=== PATIENT | female | born 1990 | race Hispanic/Latino ===

== ENCOUNTER 2017-07-07 07:25 | Inpatient (IN) | payer BC ==
--- NOTE | 2017-07-06 21:31 | PDOC.LDHP ---
Labor and Delivery H&P Chief complaint: scheduled induction HPI: 26 yo @ 38w5d by LMP c/w 20 week sono who presents for IOL due to A2DM managed on Metformin 1000 mg qhs and 500 mg qam. Patient also taking ASA 81 mg to due to h/p pre-eclampsia with prior @ 36 weeks. Antepartum course otherwise benign. Current gestational age (weeks): 38 Due date: 07/16/17 Dating criteria: last menstrual period Grav: 2 Para: 1 OB History Details: @ 36 weeks due to IOL for pre-eclampsia Current complications: gestational diabetes Abnormal US findings: No Past Medical History: Obesity Current medications: pre- vitamins, other (ASA, Metformin ) Previous surgical history: none Allergies/Adverse Reactions: Allergies Allergy/AdvReac Type Severity Reaction Status Date / Time No Known Allergies Allergy Verified 07/07/17 08:13 Social history: none - Physical Exam Vital signs reviewed and normal: yes General: NAD Heart: RRR Lungs: nonlabored breathing Abdomen: gravid Extremeties: no edema FHT: category 1 (140s, mod shania, +accels, no decels ) Napoleon contractions every: irregular - Vaginal Exam cm dilated: 4 (AROM clear ) Effacement: 50% Station: -2 - OB Labs Blood type: A RH: positive HIV: negative RPR: negative HEPSAg: negative 1 hour GCT: positive 3 hour GTT: positive GBS: negative Urine drug screen: not done Additional Labs: Rubella non-immune - Assessment 38w5d IUP A2DM H/O of pre-eclampsia Rubella non-immune - Plan Plan: admit to L&D, informed consent obtained, anesthesia consult for pain management -: Start pitocin for induction MMR post
[2017-07-07] MEDS: Lactated Ringer's 1,000 ML IV SCH ×2 (07:55→10:00)
[2017-07-07] MEDS ORDERED: LR / Pitocin 40 units/1000 ml 1,000 ML IV PRN (08:02)
[2017-07-07] MEDS ORDERED: Misoprostol 200 MCG TAB PR PRN (08:02)
[2017-07-07] MEDS ORDERED: Carboprost 250 MCG/ML AMP IM PRN (08:02)
[2017-07-07] MEDS ORDERED: HYDROcodone/Acetaminophen 5/325 mg Tablet PO PRN (08:02)
[2017-07-07] MEDS ORDERED: Ondansetron HCl/PF 4 MG/2 ML Vial IVP PRN ×3 (08:02→16:24)
[2017-07-07] MEDS ORDERED: Acetaminophen 500 MG TAB PO PRN (08:02)
[2017-07-07] MEDS ORDERED: Diphenoxylate HCl/Atropine Tablet PO PRN (08:02)
[2017-07-07] MEDS ORDERED: Lidocaine 1% (PF) 30 ML VIAL SC PRN (08:02)
[2017-07-07] MEDS ORDERED: Promethazine HCl 25 MG/ML VIAL IM PRN ×3 (08:02→16:24)
[2017-07-07] MEDS ORDERED: Ibuprofen 800 MG TAB PO PRN (08:02)
[2017-07-07] MEDS ORDERED: LR 500 ML/Oxytocin 10 units 500 ML IV SCH (08:02)
[2017-07-07 08:33] LABS: Hematocrit 33.8 % (36.0-47.0); Red Blood Cell (RBC) Count 3.72 mill/uL (4.20-5.40); White Blood Cell (WBC) Count 8.2 thou/uL (4.8-10.8)
[2017-07-07 08:41] VITALS: BMI 39.9
[2017-07-07] MEDS ORDERED: Fentanyl 4 mcg/Marc 0.1% Cadd 100 ML ONE (09:01)
[2017-07-07] MEDS ORDERED: Bupivacaine 0.75% W/DEXTROSE 8.25% 2 ML AMP ONE (09:15)
[2017-07-07] MEDS ORDERED: Fentanyl 100 MCG/2 ML VIAL ONE (09:22)
[2017-07-07] MEDS ORDERED: Fentanyl 100 MCG/2 ML VIAL I-THECAL ONE (09:50)
[2017-07-07] MEDS ORDERED: Bupivacaine 0.75% W/DEXTROSE 8.25% 2 ML AMP NERVE BLCK ONE (09:50)
[2017-07-07] MEDS ORDERED: Lactated Ringer's 500 ML IV PRN (09:51)
[2017-07-07] MEDS ORDERED: Acetaminophen 325 MG TAB PO PRN (09:51)
[2017-07-07] MEDS ORDERED: Naloxone HCl 0.4 mg/ml Vial IVP PRN ×2 (09:51)
[2017-07-07] MEDS ORDERED: ePHEDrine/0.9% NaCl/PF SYRINGE 50 mg/10 ml SLOW IVP PRN (09:51)
[2017-07-07] MEDS ORDERED: diphenhydrAMINE HCl 50 MG/ML 1 ML VIAL IVP PRN (09:51)
[2017-07-07] MEDS ORDERED: Eucerin (Mineral Oil/Petrolatum,White) 30 gm Jar TOP PRN (09:51)
[2017-07-07] MEDS ORDERED: Fentanyl 4mcg/Marcaine 0.1% Cassette 100 ML EPIDURAL SCH (10:00)
[2017-07-07] MEDS ORDERED: Communication Order-Pharmacy FS SCH (10:00)
--- NOTE | 2017-07-07 13:17 | PDOC.OPDEL ---
OB Operative/Delivery Note Delivery Dr/Surgeon: Betsy Whitlock DO Pre-Delivery Diagnosis: medically indicated induction (A2DM) Weeks gestation: 38 Anesthesia: epidural - Findings A Sex: female Weight: 7 lb 14 oz - 5 min: 9 (apgars 9/9) - Additional Findings/Plan Placenta delivered: spontaneous Repaired Obstetrical Laceration: 1st degree Estimated blood loss: 300 cc Compilations/Other Findings: delivered in PORTIA position without complications. Post delivery plan: routine recovery
[2017-07-07] MEDS ORDERED: traMADol HCl 50 MG TAB PO PRN (16:24)
[2017-07-07] MEDS ORDERED: Milk Of Magnesia 30 ML UDCUP PO PRN (16:24)
[2017-07-07] MEDS ORDERED: Benzocaine/Menthol 20-0.5% 60 ML CAN TOP PRN (16:24)
[2017-07-07] MEDS ORDERED: LR / Pitocin 40 units/1000 ml 1,000 ML IV SCH (16:24)
[2017-07-07] MEDS ORDERED: diphenhydrAMINE HCl 25 MG CAP PO PRN (16:24)
[2017-07-07] MEDS ORDERED: Bisacodyl 10 MG SUPP PR PRN (16:24)
[2017-07-07] MEDS ORDERED: Measles/Mumps/Rubella 10 MCG/0.5 ML VIAL SC ONE (16:24)
[2017-07-07] MEDS: Ibuprofen 800 MG TAB PO SCH ×2 (19:21→20:43)
[2017-07-07] MEDS: Docusate (Surfak) 240 MG CAP PO SCH (20:43)
[2017-07-08] MEDS: Ibuprofen 800 MG TAB PO SCH ×3 (04:03→20:59)
[2017-07-08 05:31] LABS: Hematocrit 32.5 % (36.0-47.0); Red Blood Cell (RBC) Count 3.54 mill/uL (4.20-5.40); White Blood Cell (WBC) Count 12.1 thou/uL (4.8-10.8)
[2017-07-08] MEDS: Docusate (Surfak) 240 MG CAP PO SCH ×2 (09:36→20:59)
[2017-07-08] MEDS: Prenatal Vitamin 1 TAB PO SCH (09:36)
--- NOTE | 2017-07-08 13:07 | PDOC.PP ---
Post Progress Note Post Day #: 1 -: Doing well. Denies pain or increased VB. Attempting to breast feed. PO intake tolerated: no Flatus: no Ambulation: no Vital Signs (12 hours) Temp Pulse Resp BP 07/08/17 11:40 97.7 F 79 20 112/72 07/08/17 08:11 97.8 F 79 20 97/52 L 07/08/17 08:00 97.8 F 79 20 07/08/17 04:00 97.8 F 85 18 103/54 L Weight Weight 240 lb - Physical Examination General: NAD Cardiovascular: RRR Respiratory: clear to ausculation bilateral Abdominal: no distention, appropriately TTP Fundus firm & at: below umbilicus Extremities: negative homans (B) Skin: no rash Neurological: no gross focal deficits Psychiatric: A&Ox3 Result Diagrams: 07/08/17 05:08 Additional Labs: Post Labs Blood Type A POSITIVE 07/07/17 08:11 Hep Bs Antigen Non-Reactive S/CO (NonReactive) 07/07/17 08:11 (1) Gestational diabetes Code(s): O24.419 - GESTATIONAL DIABETES MELLITUS IN , UNSP CONTROL Status: Resolved (2) 38 weeks gestation of Code(s): Z3A.38 - 38 WEEKS GESTATION OF Status: Resolved (3) Vaginal delivery Code(s): O80 - ENCOUNTER FOR FULL-TERM UNCOMPLICATED DELIVERY Status: Acute - Assessment/Plan Doing well post . Desires to stay another night for help with breast feeding. Plan for d/c tomorrow.
[2017-07-09] MEDS: Ibuprofen 800 MG TAB PO SCH (04:55)
[2017-07-09 08:14] VITALS: BP 121/78; TEMP 97.8
[2017-07-09] MEDS ORDERED: Measles/Mumps/Rubella 10 MCG/0.5 ML VIAL SC ONE (08:28)
--- NOTE | 2017-07-09 08:33 | PDOC.PP ---
Post Progress Note Post Day #: 2 -: Doing well. Minimal lochia and pain. PO intake tolerated: yes Flatus: yes Ambulation: yes Vital Signs (12 hours) Temp Pulse Resp BP 07/09/17 08:14 97.8 F 74 20 121/78 Weight Weight 240 lb - Physical Examination General: NAD Cardiovascular: RRR Abdominal: no distention, appropriately TTP Fundus firm & at: below umbilicua Extremities: negative homans (B) Skin: no rash Neurological: no gross focal deficits Psychiatric: A&Ox3 Result Diagrams: 07/08/17 05:08 Additional Labs: Post Labs Blood Type A POSITIVE 07/07/17 08:11 Hep Bs Antigen Non-Reactive S/CO (NonReactive) 07/07/17 08:11 (1) Gestational diabetes Code(s): O24.419 - GESTATIONAL DIABETES MELLITUS IN , UNSP CONTROL Status: Resolved (2) 38 weeks gestation of Code(s): Z3A.38 - 38 WEEKS GESTATION OF Status: Resolved (3) Vaginal delivery Code(s): O80 - ENCOUNTER FOR FULL-TERM UNCOMPLICATED DELIVERY Status: Acute - Assessment/Plan D/C home today F/U 6 weeks PP MMR before discharge
[2017-07-09] MEDS: Docusate (Surfak) 240 MG CAP PO SCH (08:36)
[2017-07-09] MEDS: Prenatal Vitamin 1 TAB PO SCH (08:36)
== END 2017-07-09 13:25 | disposition home or self-care (01) | DRG 775 ==
LOC: L&D 07:25 → 3SW 15:56
PROVIDERS: ADMIT Obstetrics & Gynecology; ATTEND Obstetrics & Gynecology
PROC: 10E0XZZ Delivery of Products of Conception, External Approach (ICD-10-PCS; principal; 2017-07-07)
PROC: 10907ZC Drainage of Amniotic Fluid, Therapeutic from Products of Conception, Via Natural or Artificial Opening (ICD-10-PCS; 2017-07-07)
PROC: 3E0P3VZ Introduction of Hormone into Female Reproductive, Percutaneous Approach (ICD-10-PCS; 2017-07-07)
PROC: 0HQ9XZZ Repair Perineum Skin, External Approach (ICD-10-PCS; 2017-07-07)
DX: O24.429 Gestational diabetes mellitus in childbirth, unspecified control (principal); O69.1XX0 Labor and delivery complicated by cord around neck, with compression, not applicable or unspecified; O70.0 First degree perineal laceration during delivery; Z3A.38 38 weeks gestation of pregnancy; Z37.0 Single live birth
CPT/HCPCS: 36415; 76815; 85027; 86780; 86850; 86900; 86901; 87340; 87389; 90707; J2001; J3010; J3490; J7120